=== PATIENT | male | born 1960 | race Caucasian/White ===

== ENCOUNTER 2025-09-12 10:34 | Emergency (ER) | payer BC, SELFPAY ==
[2025-09-12 10:52] VITALS: BP 105/80
--- NOTE | 2025-09-12 11:12 | ED.GENMED ---
History of Present Illness
General
Chief Complaint: Cold/Flu/URI Symptoms
Source: patient
Exam Limitations: none
Time Seen by Provider: 09/12/25 11:09
Nursing documentation reviewed up to this point in time: agreed with
History of Present Illness
History of Present Illness:
Patient is a 64-year-old healthy male who presents to the emergency department for evaluation of shortness of breath and weakness. Symptoms began 4-5 days ago including body aches, chills, nasal congestion, headache, and cough. He was seen by his
primary care provider on Friday where he tested positive for influenza A. He was given an albuterol inhaler and Tamiflu. He states that over the weekend his cough increased and he became mildly short of breath with increased weakness. He has very
little appetite. He did report intermittent, nonexertional chest pain over the past few days which he relates to coughing. He has had no chest pain today.
He denies any known fever. No hemoptysis. No abdominal pain or dysuria.
He contacted his primary care provider this morning who recommended evaluation in the emergency department to evaluate for possible pneumonia.
Past History
Past History
ED Past Medical History: Other (kidney stone, Pancreatitis); Negative Asthma, HTN, Hypercholesterolemia or NIDDM
ED Past Surgical History: Orthopedic (right rotator Cuff surgery) and Other (History lithotripsy as well as stent placement for kidney stones on the left, knee arthroscopy)
Social History
Tobacco: Former smoker
Alcohol: Occasional
Drug: Former user
Personal: (Significant other)
Living: with family
Employment: Employed
Review of Systems
Review of Systems
Allergies reviewed?: Yes
All Other Systems: ROS reviewed and negative except as documented in HPI and ROS
Phy Exam
Physical Exam
Physical Exam:
Vitals: Mildly tachypneic, otherwise vital stable. Afebrile
Skin: Warm and dry, no rashes or lesions
Head: Normocephalic, atraumatic
Eyes: Sclera nonicteric. EOMs intact.
Throat: Posterior pharynx not erythematous. No tonsillar edema or exudates. Protecting airway
Neck: Normal ROM, no cervical spine tenderness, no meningismus
Cardiac: Regular rate and rhythm, no murmurs.
Pulm: Coarse breath sounds bilaterally with scattered expiratory wheeze. Frequent cough. Not hypoxic
Abdomen: Soft and nontender.
Extremities: No evidence of cyanosis or edema
Neuro: AAOx3. Grossly intact.
Psychiatric: Normal affect.
Course
Orders/Labs/Results
Orders:
Orders
09/12/25 10:55
Electrocardiogram (*1) Urgent
Reason for Study: Chest Pain
CR Chest - 2 Views Urgent
Comment:
Reason For Exam: chest pain/SOB
09/12/25 10:56
EKG- Treatment ONCE
09/12/25 11:25
0.9% Sodium Chloride 1000 ml [Nss] 1,000 ml IV BOLUS
Acetaminophen [Tylenol] 1,000 mg PO NOW STA
Dexamethasone Sod Phosphate [Decadron] 6 mg IV NOW STA
Ipratropium/Albuterol Sulfate [Duoneb] 3 ml INH R NOW STA
09/12/25 11:27
Complete Blood Count/With Diff Urgent
Comprehensive Metabolic Panel Urgent
Troponin I Urgent
09/12/25 12:43
Ipratropium/Albuterol Sulfate [Duoneb] 3 ml INH R NOW STA
Abnormal Lab Results
09/12/25
11:27
Hct 52.1 H %
(39.0-52.0)
Monocytes % 13.2 H %
(1.7-9.3)
Glucose 105 H mg/dl
(70-99)
ALT 52 H U/L
(0-50)
09/12/25 11:27
09/12/25 11:27
Vital Signs
Initial and Last Documented VS:
Initial Vital Signs
Temp Pulse Resp BP Pulse Ox
97.9 F 84 22 105/80 95
09/12/25 10:52 09/12/25 10:52 09/12/25 10:52 09/12/25 10:52 09/12/25 10:52
Last Documented Vital Signs
Temp Pulse Resp BP Pulse Ox
97.9 F 58 13 106/79 98
09/12/25 10:52 09/12/25 13:45 09/12/25 13:45 09/12/25 13:01 09/12/25 14:05
MDM/Problems Addressed
Differential Diagnosis Includes:
Not limited to: Viral bronchitis, pneumonia, reactive airway disease, pericarditis, myocarditis, electrolyte abnormality, etc.
MDM/Problems Addressed:
64-year-old male positive for Influenza A presenting with worsening shortness of breath and cough. No fevers or exertional chest pain. Tested positive for Influenza A on Friday, is on Tamiflu.
Vital signs as above. On exam, patient in no respiratory distress. Lungs with course breath sounds, scattered expiratory wheeze and frequent cough. Abdomen benign. Patient perfusing well.
Differential includes viral bronchitis or pneumonia with component of reactive airway disease. Less likely cardiac etiology.
ED plan: Labs, troponin, chest x-ray. Will give IV fluids, duoneb, steroids.
Update: Labs reviewed. No leukocytosis. Chemistry unremarkable. Troponin undetectable. EKG without evidence of acute ischemia. Chest x-ray shows no evidence of pneumonia.
Patient had significant improvement in symptoms following duonebs. Wheezing has resolved. His vital signs are normal without any tachycardia, tachypnea, or hypoxia. He was ambulatory around the department with stable vital signs.
Ultimately� suspect viral bronchitis with component of reactive airway disease. Do not feel admission indicated. Patient states nebulizer treatment improved his symptoms remarkably � will send patient with prescription for nebulizer and albuterol
solution. Will send short burst of oral steroids.
Feel stable for discharge home with strict return precautions and primary care follow-up. Patient comfortable with plan.
Chronic conditions affecting care:
N/A
Acute Exacerbation and/or Progression of Chronic Illness:
N/A
*Radiology
Radiology exam reviewed: preliminary read by ED provider and radiology read reviewed
*Pulse Oximetry
SaO2: 95
Oxygen Mode of Delivery: Room air
Patient hypoxic: no
*EKG
Interpreted by ED Provider?: Yes
EKG Intrepretation Date: 09/12/25
Interpretation: abnormal
Comparison EKG: changes noted
Heart Rate: 64
Rate: normal
Rhythm: sinus
[place]: left axis deviation
Interval: normal QT interval
QRS Pattern: normal QRS
Ischemia: non-specific ST changes
*Keyboarding Teacher Interpretation
Rate: normal
Interpretation: normal
Heart Rate: 72
Rhythm: sinus
*Critical Care Note
Total Time (30-74mins, 75-104mins- exclusive of procedures): Not Applicable
ED Attending Note
-
Portions of this chart may have been created with voice recognition software.� Occasional wrong word or��sound alike� substitutions may have occurred due to the inherent limitations of voice recognition software.
Discharge Plan
Departure
Patient Disposition: Home (Routine Discharge)
Date of Disposition: 09/12/25
Time of Disposition: 14:24
Patient with high blood pressure during this ER visit?: No
Condition: Good
Discharge Problem:
Influenza A, Bronchitis
Instructions: Acute Bronchitis, Adult (DC), Flu in adults - ED (DC)
Prescriptions:
New
prednisone 20 mg tablet
40 mg PO DAILY 5 Days Qty: 10 0RF
albuterol sulfate 2.5 mg /3 mL (0.083 %) solution for nebulization
2.5 mg inhalation Q6H PRN (Reason: shortness of breath or wheezing) Qty: 75 0RF
(DME) nebulizers Misc
See Rx Instructions .Route Qty: 1 0RF
Rx Instructions:
As directed
No Action
potassium citrate 15 mEq Tablet Extended Release
15 meq PO DAILY
acetaminophen [Tylenol] 325 mg Tablet
650 mg PO QIDPRN PRN (Reason: mild pain)
omeprazole 20 mg Capsule,Delayed Release(Dr/Ec)
20 mg PO DAILY
oseltamivir [Tamiflu] 75 mg Capsule
75 mg PO BID
codeine-guaifenesin [Guaifenesin AC] 10-100 mg/5 mL Liquid
5 ml PO Q4HPRN PRN (Reason: cough)
albuterol sulfate [ProAir HFA] 90 mcg/actuation Hfa Aerosol Inhaler
2 puff INHALATION R Q6HPRN PRN (Reason: sob)
Referrals:
Aki Stubbs PA-C [Family Provider, Family Practice] - Follow up in 2-3 days
Activity Restrictions/Additional Instructions:
RETURN TO THE EMERGENCY DEPARTMENT WITH ANY FEVER, CHEST PAIN, SHORTNESS OF BREATH/DIFFICULTY BREATHING, WORSENING COUGH OR COUGHING UP BLOOD, SIGNIFICANT WEAKNESS, OR ANY OTHER CONCERNS
- As discussed, your chest x-ray showed no evidence of pneumonia today. You were given breathing treatments, IV steroids, and IV fluids today in the emergency department.
- A prescription for steroids has been sent to your pharmacy. You can start these tomorrow and take for the following 5 days. You can continue your albuterol inhaler as needed for cough/shortness of breath. A prescription for a
nebulizer/nebulizing solution has been sent to your pharmacy, if needed. You should complete your prescription for Tamiflu.
- It is very important you stay well-hydrated. Get plenty of rest. Continue to take Tylenol as needed for headache.
- Follow-up with your primary care provider in a few days for further evaluation/management and to ensure that your symptoms are improved
Monitor your symptoms closely the emergency department with any acute worsening/new symptoms or any other concerns
Interventions
Interventions:
*Risk Screen - Suicide Last Done: 09/12/25 10:54
*General Assessment Last Done: 09/12/25 11:59
*Neglect/Abuse Screening Last Done: 09/12/25 10:54
*ED COVID-19 Vaccine History Last Done: 09/12/25 11:59
*ED Influenza Vaccine History Last Done: 09/12/25 11:59
*Nursing Disposition Last Done: 09/12/25 14:38
ED- Pulmonary Assessment Last Done: 09/12/25 11:59
Discharge Date and Time
Discharge Date/Time: 09/12/25 14:40
Print Language: ARABIC
[2025-09-12] MEDS: NSS 1000 IV (11:31)
[2025-09-12] MEDS: TYLENOL 1000 MG PO (11:33)
[2025-09-12] MEDS: DECADRON 6 MG IV (11:34)
[2025-09-12] MEDS: DUONEB 3 ML INH ×2 (11:34→13:01)
[2025-09-12 11:54] LABS: Hematocrit 52.1 % (39.0-52.0); Hemoglobin 17.6 g/dL (13.0-18.0); Mean Corp Hgb Conc. 33.8 g/dL (33.0-37.0); Mean Corpuscular Volume 91.2 fL (80.0-94.0); Nucleated Red Blood Cells % 0 % (-); Platelet Count 190 10^3/uL (130-400); Red Cell Dist. Width 13.1 % (11.5-14.5)
[2025-09-12 12:03] VITALS: BP 113/90
[2025-09-12 12:15] LABS: ALT (SGPT) 52 U/L (0-50); AST (SGOT) 43 U/L (17-59); Albumin 4.6 g/dl (3.5-5.0); Alkaline Phosphatase 40 U/L (38-126); Blood Urea Nitrogen 20 mg/dl (9-20); Calcium 9.5 mg/dl (8.4-10.2); Carbon Dioxide 25 mmol/L (22-30); Chloride 106 mmol/L (98-107); Glucose 105 mg/dl (70-99); Potassium 4.4 mmol/L (3.5-5.1); Sodium 137 mmol/L (135-145); Total Protein 7.5 g/dl (6.3-8.2); eGFR > 60.00
[2025-09-12 12:25] LABS: Troponin I < 0.012 ng/ml
[2025-09-12 13:01] VITALS: BP 106/79
== END 2025-09-12 14:40 | disposition home or self-care (01) ==
LOC: EMR 10:34
PROVIDERS: Emergency Medicine; EMERGENCY PHYSICIAN Emergency Medicine; FAMILY PHYSICIAN Physician Assistant Medical
DX: J10.1 Influenza due to other identified influenza virus with other respiratory manifestations (principal); J40 Bronchitis, not specified as acute or chronic; E11.9 Type 2 diabetes mellitus without complications; I10 Essential (primary) hypertension; Z87.891 Personal history of nicotine dependence
CPT/HCPCS: 96374; 94640; 96361; 99285; 71046; 80053; 84484; 85025; 93005